=== PATIENT | female | born 1945 | race Caucasian/White ===

== ENCOUNTER 2018-11-23 15:56 | Inpatient (IN) | payer MEDICARE, MEDICAID ==
[~2018-11-23] VITALS: Ht 160 cm; Wt 56.8 kg
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
[2018-11-24] MEDS ORDERED: mag hydrox/Alum hydrox/simeth 30ml oral suspension PO PRN ×2 (01:40→01:45)
[2018-11-24] MEDS ORDERED: tuberculin, purif. prot. deriv. 5 units/0.1ml ID ONE (01:40)
[2018-11-24] MEDS ORDERED: magnesium hydroxide 30ml (MOM) UD suspension PO PRN ×2 (01:40→01:45)
[2018-11-24] MEDS ORDERED: acetaminophen 325mg tablet PO PRN ×3 (01:40)
[2018-11-24] MEDS: hydrOXYzine 25 MG tablet PO PRN (01:59)
[2018-11-24] MEDS: acetaminophen 325mg tablet PO PRN ×3 (01:59→22:15)
[2018-11-24] MEDS ORDERED: Permethrin Cream 60gm TP ONE (03:30)
[2018-11-24] MEDS ORDERED: Permethrin 1% 59ml topical rinse TP ONE (03:30)
--- NOTE | 2018-11-24 06:39 | NUR ---
Called infection control, pt placed on contact precautions and will be moved into a private room when available. Paged hospitalist to assess rash and advised of infection control's recommendation of administering Ivermectin if confirmed scabies. Belongings to be bagged and placed in outdoor ER lockers.
[2018-11-24] MEDS ORDERED: ALB0.5UD IH (06:56)
[2018-11-24] MEDS ORDERED: FLUT16SP2 BOTHNARES (06:56)
[2018-11-24] MEDS ORDERED: LAMO25TA94 PO (06:56)
[2018-11-24] MEDS ORDERED: OMEP20TA5 PO (06:56)
[2018-11-24] MEDS ORDERED: LEVO75TA PO (06:56)
[2018-11-24] MEDS ORDERED: FLUO20CA39 PO (06:56)
[2018-11-24] MEDS ORDERED: SIMV20TA5 PO (06:56)
[2018-11-24 08:00] VITALS: BP 129/93
[2018-11-24] MEDS ORDERED: lamoTRIgine 25mg tablet PO SCH (08:00)
[2018-11-24] MEDS ORDERED: pneumococcal 23-VAL P-sac vacc 25 mcg/0.5ml vial IMVAC ONE (10:00)
--- NOTE | 2018-11-24 11:15 | NUR ---
Patient showered. Permethrin cream applied. Patient moved to room 327 and will be only resident of that room. Flu and pneumonia vaccine not available from pharmacy yet.
[2018-11-24] MEDS ORDERED: albuterol 2.5 MG/3 ML nebule NEB PRN (12:30)
[2018-11-24] MEDS ORDERED: fluticasone nasal spray 16GM bottle NS PRN (12:30)
[2018-11-24 12:47] LABS: CLARITY,URINE CLEAR (Clear); COLOR,URINE STRAW (Yellow); GLUCOSE, URINE NEGATIVE (Neg); KETONES,URINE NEGATIVE (Neg); LEUKOCYTE ESTERASE ,URINE NEGATIVE (Neg); NITRITES, URINE NEGATIVE (Neg); OCCULT BLOOD,URINE NEGATIVE (Neg); PROTEIN,URINE NEGATIVE (Neg); UROBILINOGEN,URINE 0.2 E.U/dL (0.2-1.0)
[2018-11-24 12:52] LABS: UA COLLECTION TYPE CLN CATCH MIDSTREAM
--- NOTE | 2018-11-24 13:33 | NUR ---
Chief Complaint Suicidal Legal hold:5150 Client on involuntary status for DTS Report received from nurse Huertas with use of SBAR. Why are they here: Depression with suicidal ideation with plan and means Diagnosis/presenting symptoms: MDD, suicidal ideation HX bipolar and PTSD Assessment What has happened this shift: Patient was found to have scabies. She showered and applied permethrin cream. Hospitalist Alfredo was contacted. A UA, chest x-ray and additional labs were ordered. UA completed . No culture indicated. Patient is isolated in her room until the permethrin cream takes effect in the next 24 hours. S/I, H/I:[yes] A/VH: [no] Sleep:[adequate] ADL's:[independent, periods of dizziness] Group attendance:[no, isolated] Were meds taken:[yes] Any med S/E[no] Mental Status Exam Appearance:[clean and neat with circular rashes on skin, appears older than stated age] Eye contact:[good] Behavior:[pleasant and cooperative] Speech:[coherent, clear even rate and rhythm] Mood:[depressed, suicidal] Affect:[restricted] Thought process:[delusional, scattered Thought Content:[believes she is autistic, suicidal, somatic preoccupation] Cognition:[impaired] Insight:[impaired] Judgment:[poor] Interventions PRN's used:[none] Therapeutic interventions:[medication education, one to one assessment, Q15 minute checks for safety, active listening] Restraints/seclusion/emergency medication:[none] Justification of Continued Inpatient Treatment:[Patient is suicidal and needs medication stabilization]
--- NOTE | 2018-11-24 14:50 | NUR ---
Malnutrition consult. Reported weight loss between 14-23 lbs. No previous documented weight history. Current weight is 108% of [place] Body Weight. Normal muscle strength. Good appetite, eating 100% of meals. No malnutrition at this time. Addendum: 11/24/18 at [address] Amended: Links added.
[2018-11-24 16:23] LABS: BASOPHILS % (AUTO) 0.6 % (0-1); EOSINOPHILS % (AUTO) 0.5 % (0-6); HEMATOCRIT 40.3 % (35.0-45.0); HEMOGLOBIN 13.5 g/dl (12.0-16.0); LYMPHOCYTES # (AUTO) 1.7 X10'3 (1.1-4.8); LYMPHOCYTES % (AUTO) 44.9 % (21-51); MEAN CORPUSCULAR HEMOGLOBIN 30.9 PG (27.0-31.0); MEAN CORPUSCULAR HGB CONC 33.4 % (33.0-36.5); MEAN CORPUSCULAR VOLUME 92.4 FL (78-98); MEAN PLATELET VOLUME 6.6 FL (7.4-10.4); MONOCYTES # (AUTO) 0.3 X10'3 (0-0.9); MONOCYTES % (AUTO) 8.8 % (2-12); NEUTROPHILS # (AUTO) 1.7 X10'3 (1.8-7.7); NEUTROPHILS % (AUTO) 45.2 % (42-75); PLATELET COUNT 299 X10'3 (140-440); RED BLOOD COUNT 4.36 X10'6 (4.20-5.60); RED CELL DISTRIBUTION WIDTH 13.7 % (11.5-14.5); WHITE BLOOD COUNT 3.7 X10'3 (4.5-11.0)
[2018-11-24 16:38] LABS: HIV ANTIBODY 1&2 RAPID NON-REACTIVE (Neg)
[2018-11-24 16:39] LABS: ALANINE AMINOTRANSFERASE 20 U/L (12-78); ALBUMIN 3.4 G/DL (3.4-5.0); ALBUMIN/GLOBULIN RATIO 0.9 (1.1-1.5); ALKALINE PHOSPHATASE 79 IU/L (46-116); ANION GAP 11 (8-16); ASPARTATE AMINO TRANSFERASE 18 U/L (10-37); BILIRUBIN,TOTAL 0.4 MG/DL (0.1-1.0); BLOOD UREA NITROGEN 14 MG/DL (7-18); CALCIUM 8.9 MG/DL (8.5-10.1); CHLORIDE 105 MMOL/L (99-107); CHOL/HDL RATIO 4.1 (0.00-4.99); CHOLESTEROL 211 MG/DL (0-200); GLUCOSE 108 MG/DL (70-104); HDL CHOLESTEROL 52 MG/DL (35-60); LDL CHOLESTEROL 148 MG/DL (50-100); POTASSIUM 3.8 MMOL/L (3.5-5.1); SODIUM 142 MMOL/L (135-145); TOTAL CARBON DIOXIDE 26.1 MMOL/L (24-32); TOTAL PROTEIN 7.1 G/DL (6.4-8.2); TRIGLYCERIDES 100 MG/DL (20-135); eGFR 55 ML/MIN
[2018-11-24 16:45] LABS: INR 1.1 INR; PARTIAL THROMBOPLASTIN TIME 27 SECONDS (22-32); PROTHROMBIN TIME 10.9 SECONDS (9.0-12.0)
[2018-11-24] MEDS: Ivermectin 3mg tablet PO SCH (17:27)
[2018-11-24 20:00] VITALS: BP 153/92
[2018-11-24] MEDS: pantoprazole 40mg Tablet.DR PO SCH (20:22)
[2018-11-24] MEDS: atorvastatin 10mg tablet PO SCH (20:22)
--- NOTE | 2018-11-25 03:38 | NUR ---
Nursing Progress Note Chief Complaint Suicidal Legal hold:5150 Client on involuntary status for DTS Report received from nurse Watts with use of SBAR. Why are they here: Depression with suicidal ideation with plan and means Diagnosis/presenting symptoms: MDD, suicidal ideation HX bipolar and PTSD Assessment: Pt is isolated to her room due to scabies. She is looking forward to being able to participate in unit activities. She states she is very depressed but is very glad to be here. She says "I need help, I need my medications adjusted till they work for me." Pt again talked about having autism and health care workers who have not believed her. Requested Tylenol for headache. Pt was pleasant and cooperative. What has happened this shift: S/I, H/I: yes A/VH: no Sleep:sleeping at this time. ADL's: independent, no c/o dizziness Group attendance: no, isolated Were meds taken: yes Any med S/E no Mental Status Exam Appearance: clean and neat with circular rashes on skin, Eye contact: good Behavior: pleasant and cooperative Speech: coherent, clear even rate and rhythm Mood: depressed, suicidal Affect: Thought process: delusional, scattered Thought Content: believes she is autistic, suicidal, somatic preoccupation Cognition: impaired Insight: impaired Judgment: poor Interventions PRN's used: tylenol Therapeutic interventions: medication education, one to one assessment, Q15 minute checks for safety, active listening Restraints/seclusion/emergency medication: none Justification of Continued Inpatient Treatment: Patient is suicidal and needs medication stabilization
[2018-11-25] MEDS ORDERED: lurasidone 20mg tablet PO SCH (07:30)
[2018-11-25 07:36] VITALS: BP 135/96
[2018-11-25] MEDS ORDERED: lamoTRIgine 25mg tablet PO SCH (08:00)
[2018-11-25] MEDS: pantoprazole 40mg Tablet.DR PO SCH ×2 (09:04→20:31)
[2018-11-25] MEDS: levoTHYROXINE 75mcg tablet PO SCH (09:04)
[2018-11-25] MEDS ORDERED: tuberculin, purif. prot. deriv. 5 units/0.1ml ID ONE (10:00)
--- NOTE | 2018-11-25 17:56 | NUR ---
Nursing Progress Note Legal hold:5150 Client on involuntary status for DTS Report received from KITA Huertas with use of SBAR. Why are they here: Depression with suicidal ideation with plan and means Diagnosis/presenting symptoms: MDD, suicidal ideation HX bipolar and PTSD Assessment: Pt is on contact isolation to her room due to tx for scabies. Describes the feelings of pins and needles under her skin as being gone and her skin does not itch. Met with Jose Manuel Yañez/ [facility] and discussed her meds and symptoms. He will most likely stop the contact isolation tomorrow morning due to her posotive response to meds for scabies. She is looking forward to being able to participate in unit activities. She is highly engagable and enjoys talking about her life. She states she is glad to be here and wishes she got help years ago. Pt talked about having autism and writing a book about her experiences. Spoke at length about her autistic son and her concern for him. PPD placed. Pt was pleasant and cooperative. Accepted her room isolation well and adhered to it. Some grandiose thinking. What has happened this shift: S/I, H/I: Denies A/VH: no Sleep: Napped at times this shift ADL's: independent Group attendance: no, isolated Were meds taken: yes Any med S/E no Mental Status Exam Appearance: clean and neat with circular rashes on skin, Eye contact: good Behavior: pleasant and cooperative Speech: coherent, clear even rate and rhythm Mood: depressed, suicidal Affect: Thought process: delusional, scattered Thought Content: believes she is autistic Cognition: impaired Insight: impaired Judgment: poor Interventions PRN's used: tylenol Therapeutic interventions: medication education, one to one assessment, Q15 minute checks for safety, active listening Restraints/seclusion/emergency medication: none Justification of Continued Inpatient Treatment: Patient is suicidal and needs medication stabilization
[2018-11-25] MEDS: lamoTRIgine 100mg tablet PO SCH (18:00)
[2018-11-25 20:05] VITALS: BP 151/94
[2018-11-25] MEDS: prazosin 1mg capsule PO SCH (20:31)
[2018-11-25] MEDS: atorvastatin 10mg tablet PO SCH (20:31)
--- NOTE | 2018-11-25 23:31 | NUR ---
Nursing Progress Note Legal hold:5150 Client on involuntary status for DTS Report received from KITA Huerta Why are they here: Depression with suicidal ideation with plan and means. Diagnosis/presenting symptoms: MDD, suicidal ideation HX bipolar and PTSD Assessment: What has happened this shift: Patient is in her room at change of shift as she remains on contact isolation for scabies. Patient is easily engaged in conversation and is cooperative with 1:1 assessment at her bedside. She is looking forward to getting off of isolation so she can attend unit activities and socialize with others. She expresses that she no longer feels suicidal and that she feels she is finally getting the helps she needs. She is hopeful with her new medication of Minipress that she will stop having nightmares. She spends the rest of her evening reading magazines while in bed, and then turning her lights out and goes to bed. S/I, H/I: Denies A/VH: No Sleep: Sleeping ADL's: Independent Group attendance: None Were meds taken: Yes Any med S/E: No Mental Status Exam Appearance: Clean well groomed with circular rashes on skin related to scabies. Eye contact: Good Behavior: Cooperative and Pleasant Speech: Clear, normal rate and rhythm Mood: Depressed Affect: Bright Thought process: Grandiose Thought Content: Believes she has autism Cognition: Impaired Insight: Poor Judgment: Poor Interventions PRN's used: None Therapeutic interventions: 1:1 assessment at patients bedside. Educated patient on medications. educated patient on isolation status. Provided therapeutic environment and active listening. Q15 minute checks for safety. Restraints/seclusion/emergency medication: None Justification of Continued Inpatient Treatment: Patient is depressed and needs medication stabilization.
[2018-11-26] MEDS: acetaminophen 325mg tablet PO PRN ×2 (02:07→15:50)
[2018-11-26] MEDS: hydrOXYzine 25 MG tablet PO PRN (02:07)
--- NOTE | 2018-11-26 07:51 | NUR ---
Nursing note: Infection control Jose Manuel Yañez arrives and assesses pts skin issues. Pts scabies are starting to improve. Pt has been taken off of isolation. Pt may be retreated a week later if the scabies worsens or returns.
[2018-11-26 08:00] VITALS: BP 117/74
[2018-11-26] MEDS ORDERED: FLUoxetine 20mg capsule PO SCH (08:00)
[2018-11-26] MEDS: levoTHYROXINE 75mcg tablet PO SCH (08:11)
[2018-11-26] MEDS: pantoprazole 40mg Tablet.DR PO SCH ×2 (08:11→20:41)
[2018-11-26 08:17] LABS: HBSAG SCREEN Negative (Negative); HEP A AB, IGM Negative (Negative); HEP B CORE AB, IGM Negative (Negative); HEPATITIS C ANTIBODY <0.1 s/co ratio (0.0-0.9)
--- NOTE | 2018-11-26 15:10 | NUR ---
Nursing Progress Note Legal hold: 5150 Client on involuntary status for DTS Report received from KITA Colon Why are they here: Depression with suicidal ideation with plan and means. Diagnosis/presenting symptoms: MDD, suicidal ideation HX bipolar and PTSD Assessment: What has happened this shift: Patient has been on contact isolation for scabies, Jose Manuel Otilio, Infection Control took her off isolation contact precautions. Patient is hyperverbal. States she has fractures of her cervical spine, lumbar spine and pelvis. Patient attends groups, but then has to leave as sitting up gives her headaches. S/I, H/I: A/VH: States that she has had visual lozano. for last 3 months, but none currently. Sleep: Awake during daytime. ADL's: Independent Group attendance: Yes. Were meds taken: Yes Any med S/E: No Mental Status Exam Appearance: Clean well groomed with circular rashes on skin related to scabies. Eye contact: Good Behavior: Cooperative and Pleasant Speech: Clear, normal rate and rhythm Mood: Depressed Affect: Bright Thought process: Flight of ideas. Thought Content: Discharge plans, loneliness. Cognition: Impaired Insight: Poor Judgment: Poor Interventions PRN's used: None Therapeutic interventions: 1:1 assessment at patients bedside. Educated patient on medications. educated patient on isolation status. Provided therapeutic and active listening. Q15 minute checks for safety. Restraints/seclusion/emergency medication: None Justification of Continued Inpatient Treatment: Patient is depressed and needs medication stabilization.
[2018-11-26 19:00] VITALS: BP 143/75
[2018-11-26] MEDS: lamoTRIgine 100mg tablet PO SCH (19:14)
[2018-11-26] MEDS: atorvastatin 10mg tablet PO SCH (20:42)
[2018-11-26] MEDS: prazosin 1mg capsule PO SCH (20:42)
--- NOTE | 2018-11-27 00:36 | NUR ---
Nursing Progress Note Legal hold: 5150 Client on involuntary status for DTS Report received from KITA Torres Why are they here: Depression with suicidal ideation with plan and means. Diagnosis/presenting symptoms: MDD, suicidal ideation HX bipolar and PTSD Assessment: What has happened this shift: Patient walking the unit interacting with others at the change of shift. Met with patient in her room for a 1:1 assessment. Patient is really talkative, and jumps from topic to topic elaborating on on her stories. She is very friendly and enjoys the conversation. This evening she is preoccupied with the idea of finding a new home in [place] as she no longer wants to go to her house where she lives. Patient presents with grandiose thinking and flight of ideas. She enjoys the interaction with others, and is happy to be off of isolation. She is educated on her evening medications, and then spends the rest of her evening in bed reading till she falls asleep. S/I, H/I: Denies A/VH: Denies Sleep: Sleeping currently ADL's: Independent Group attendance: None Were meds taken: Yes Any med S/E: No Mental Status Exam Appearance: Clean well groomed with circular rashes on skin related to scabies. Eye contact: Good Behavior: Cooperative and Pleasant Speech: Clear, normal rate and rhythm Mood: Patient states "better today, some depression." Affect: Bright Thought process: Flight of ideas, Grandiose. Thought Content: Discharge plans. Cognition: Impaired Insight: Poor Judgment: Poor Interventions PRN's used: None Therapeutic interventions: 1:1 assessment at patients bedside. Educated patient on medications. Provided therapeutic and active listening to maintain rapport. Q15 minute checks for safety. Restraints/seclusion/emergency medication: None Justification of Continued Inpatient Treatment: Patient is depressed and needs medication stabilization.
[2018-11-27] MEDS: levoTHYROXINE 75mcg tablet PO SCH (07:22)
[2018-11-27] MEDS: acetaminophen 325mg tablet PO PRN (07:22)
[2018-11-27] MEDS: pantoprazole 40mg Tablet.DR PO SCH ×2 (07:23→20:09)
[2018-11-27] MEDS: FLUoxetine 20mg capsule PO SCH (07:23)
[2018-11-27 07:55] VITALS: BP 126/77
--- NOTE | 2018-11-27 15:55 | NUR ---
Initial: Pt admitted to [facility] for bipolar disorder with depression. Pt currently on a mechanical soft diet with documented PO intake 75-100% meeting nutrient needs. LBM 11/27. No edema or wounds. No nutrition diagnosis at this time. Will continue to follow. Recommendations: 1) Continue with [facility] soft diet 2) Weekly wt Addendum: 11/27/18 at [address] Amended: Links added.
--- NOTE | 2018-11-27 17:43 | NUR ---
Nursing Progress Note: Chief Complaint: 5150 for DTS Legal hold: 5250 Client on involuntary status DTS. Report received from KITA Colon with use of SBAR. Why are they here:. Diagnosis/presenting symptoms: Bipolar, Depressed, PTSD. Pt here on 5250 for DTS. Assessment What has happened this shift: Pt was up in the group room at change of shift. She reported pain in her lower back, PRN Tylenol given. Pt was pleasant and cooperative with assessment. She was talkative. She talked about her home environment and having difficulty providing food for herself and pets. She expressed concern about a patient that she feels is watching her. She stated, "Don't know if he thinks he is in love with me, but he is going about it the wrong way." Pt expressed that she was anxious and had a PTSD flashback when another pt was agitated on the unit. Offered active listening and redirected pt that she was safe. S/I, H/I: denies A/VH: she stated, "not in years" Sleep: Napped ADL's: independent Group attendance: yes Were meds taken: yes Any med S/E: no Mental Status Exam Appearance: Pt appears thin, missing teeth, and wearing clothing over scrub top. Eye contact: Direct Behavior: Appropriate Speech: Talkative Mood: Anxious at times Affect: Congruent with mood Thought process: Linear Thought Content: Concerned about another pt she feels is watching her Cognition: A&Ox4 Insight: Poor Judgment: Poor Interventions PRN's used: Tylenol Therapeutic interventions: 1:1 therapeutic assessment, active listening, Q 15 min safety checks, medication education Restraints/seclusion/emergency medication: None Justification of Continued Inpatient Treatment: Pt require medication adjustments, support and therapeutic interventions to provide stabilization and prevent decompensation and decrease the risk for the patient and readmittance.
[2018-11-27] MEDS: lamoTRIgine 100mg tablet PO SCH (18:03)
[2018-11-27 19:30] VITALS: BP 123/69
[2018-11-27] MEDS: prazosin 1mg capsule PO SCH (20:09)
[2018-11-27] MEDS: atorvastatin 10mg tablet PO SCH (20:09)
--- NOTE | 2018-11-27 23:32 | NUR ---
Nursing Progress Note Legal hold: 5150 Client on involuntary status for DTS Report received from KITA Wilkinson Why are they here: Depression with suicidal ideation Diagnosis/presenting symptoms: MDD, suicidal ideation HX bipolar and PTSD Assessment: What has happened this shift: Patient was in her room at change of shift. 1:1 assessment completed at bedside. Pt is in a pleasant mood, denies s/i. Pt reports she is feeling tired states "I was up too much this morning, this day was too busy for me." Pt reports sleeping very well last night and reports "pleasant dreams" She spent evening talking w/another patient and then watched tv w/others in the group room. Pt reports her appetite is good, states she's getting good food here. Pt is concerned of another patient talking to her, but I did not witness him making any attempts to speak to her this shift. S/I, H/I: denies A/VH: denies . Sleep: reports sleep is good ADL's: Independent Group attendance: Yes. Were meds taken: Yes Any med S/E: No Mental Status Exam Appearance: adequately groomed and appropriately dressed Eye contact: Good Behavior: Cooperative and Pleasant Speech: wnl Mood: pleasant, continues to have some depression Affect: Bright Thought process: tangential Thought Content: talking about "socializing" with peers. Cognition: Impaired Insight: Poor Judgment: Poor Interventions PRN's used: None Therapeutic interventions: 1:1 assessment at patients bedside. Provided therapeutic and active listening. Q15 minute checks for safety. Restraints/seclusion/emergency medication: None Justification of Continued Inpatient Treatment: Patient is depressed and needs medication stabilization.
[2018-11-28] MEDS: levoTHYROXINE 75mcg tablet PO SCH (07:59)
[2018-11-28] MEDS: pantoprazole 40mg Tablet.DR PO SCH ×2 (07:59→20:25)
[2018-11-28] MEDS: FLUoxetine 20mg capsule PO SCH (07:59)
[2018-11-28] MEDS: LIDOcaine 5% patch TP SCH (08:00)
[2018-11-28 08:32] VITALS: BP 120/68
[2018-11-28] MEDS: acetaminophen 325mg tablet PO PRN (12:51)
--- NOTE | 2018-11-28 17:25 | NUR ---
Nursing Progress Note: Chief Complaint: 5150 for DTS Legal hold: 5250 Client on involuntary status DTS. Report received from KITA Esparza with use of SBAR. Why are they here:. Diagnosis/presenting symptoms: Bipolar, Depressed, PTSD. Pt here on 5250 for DTS. Assessment What has happened this shift: Pt was sleeping at change of shift. She was compliant with mediation administration. Pleasant and cooperative with assessment. Pt talkative with flight of ideas. She denied depression, but indicated she was a little anxious. She stated, "that brian with bald head freaks me out." While discussing how she feels she stated, "I feel like a human again instead of a doormat." Lidocaine and tylenol relieved pt's pain in her back. Pt participated in groups. S/I, H/I: denies A/VH: denies Sleep: Napped ADL's: independent Group attendance: yes Were meds taken: yes Any med S/E: no Mental Status Exam Appearance: Dressed neatly in white pants with a lavender turtle neck Eye contact: Direct Behavior: Talkative Speech: Articulate Mood: Anxious Affect: Pleasant Thought process: Tangential Thought Content: Flight of ideas Cognition: A&Ox4 Insight: Poor Judgment: Poor Interventions PRN's used: Tylenol Therapeutic interventions: 1:1 therapeutic assessment, active listening, Q 15 min safety checks, medication education Restraints/seclusion/emergency medication: None Justification of Continued Inpatient Treatment: Pt require medication adjustments, support and therapeutic interventions to provide stabilization and prevent decompensation and decrease the risk for the patient and readmittance.
[2018-11-28] MEDS: lamoTRIgine 100mg tablet PO SCH (18:04)
[2018-11-28 19:00] VITALS: BP 122/65
[2018-11-28] MEDS: atorvastatin 10mg tablet PO SCH (20:25)
[2018-11-28] MEDS: prazosin 1mg capsule PO SCH (20:25)
--- NOTE | 2018-11-29 02:40 | NUR ---
RN PROGRESS NOTE: Legal hold: 5250 Client on involuntary status for DTS Report received from KITA Wilkinson Why are they here: The patient was brought in by a friend that was worried that she might harm herself. The patient states that her medications got screwed up and she couldn't think right. Diagnosis/presenting symptoms: MDD, PTSD, SI, anxiety Assessment: What has happened this shift: The patient was in her room at change of shift. 1:1 assessment completed at bedside. The patient is calm and cooperative. She reports that she slept well last night and had good, happy dreams. "My meds are working, but I feel deidre wired today." The patient was hyperverbal and needed re-direction a couple times, but was able to have good conversation. She stayed in her room reading, then went to sleep after HS med pass. S/I, H/I: Denies A/VH: Denies . Sleep: "Good sleep with happy dreams." ADL's: Independent Group attendance: No groups tonight. Were meds taken: Yes Any med S/E: None noted Mental Status Exam Appearance: adequately groomed and appropriately dressed Eye contact: Good Behavior: Pleasand and cooperative, laying in bed reading. Speech: Hyperverbal Mood: "Great." Affect: Bright Thought process: Tangential, flight of ideas. Thought Content: Focused on getting better and going home. Cognition: A/O Insight: Poor Judgment: Poor Interventions PRN's used: None Therapeutic interventions: 1:1 assessment. Medication administration, provided safe environment, Provided therapeutic and active listening. Q15 minute checks for safety. Restraints/seclusion/emergency medication: None Justification of Continued Inpatient Treatment: Patient is depressed and needs medication stabilization.
[2018-11-29 07:00] VITALS: BP 131/88
[2018-11-29] MEDS: pantoprazole 40mg Tablet.DR PO SCH ×2 (07:40→20:49)
[2018-11-29] MEDS: levoTHYROXINE 75mcg tablet PO SCH (07:40)
[2018-11-29] MEDS: FLUoxetine 20mg capsule PO SCH (07:40)
[2018-11-29] MEDS: LIDOcaine 5% patch TP SCH (07:41)
[2018-11-29] MEDS: ibuprofen 200mg tablet PO PRN (11:07)
--- NOTE | 2018-11-29 16:10 | NUR ---
KITA PROGRESS NOTE: Legal hold: 5250 Client on involuntary status for DTS Report received from KITA Cantu Why are they here: The patient was brought in by a friend that was worried that she might harm herself. The patient states that her medications got screwed up and she couldn't think right. Diagnosis/presenting symptoms: MDD, PTSD, SI, anxiety Assessment: What has happened this shift: Patient laying in bed complaining of back pain, ibuprofen given with good relief along with lidocaine patch. Patient openly discusses details of her life, including childhood trauma. S/I, H/I: Denies A/VH: Denies . Sleep: Good. ADL's: Independent Group attendance: Attempted to attend movie group, but patient could not hear t.v. and went and read. Were meds taken: Yes Any med S/E: None noted Mental Status Exam Appearance: Clean and neat elderly female in green scrubs. Eye contact: Good Behavior: Calm and cooperative. Speech: Hyperverbal Mood: Patient states she is a good mood. No mood lability noted. Affect: Bright Thought process: Tangential. Thought Content: Focused on getting better and going home to her animals. Cognition: A/O Insight: Fair. Judgment: Poor Interventions PRN's used: None Therapeutic interventions: 1:1 to assess severity of symptoms. Provided safe environment, Provided therapeutic and active listening. Q15 minute checks for safety. Restraints/seclusion/emergency medication: None Justification of Continued Inpatient Treatment: Patient is in process of stabilization process. If relased before stabilized, patient would be at a high risk for readmission.
[2018-11-29 19:55] VITALS: BP 141/81
[2018-11-29] MEDS: atorvastatin 10mg tablet PO SCH (20:49)
[2018-11-29] MEDS: prazosin 1mg capsule PO SCH (20:50)
[2018-11-29] MEDS: lamoTRIgine 100mg tablet PO SCH (20:51)
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
[2018-11-30 07:00] VITALS: BP 126/78
[2018-11-30] MEDS: FLUoxetine 20mg capsule PO SCH (07:36)
[2018-11-30] MEDS: pantoprazole 40mg Tablet.DR PO SCH ×2 (07:36→20:19)
[2018-11-30] MEDS: levoTHYROXINE 75mcg tablet PO SCH (07:36)
[2018-11-30] MEDS: ibuprofen tablet 400 MG TABLET PO PRN (07:36)
[2018-11-30] MEDS: acetaminophen 325mg tablet PO PRN (07:37)
[2018-11-30] MEDS: LIDOcaine 5% patch TP SCH (07:38)
[2018-11-30] MEDS: SUMAtriptan 25 MG tablet PO PRN ×2 (10:34→12:43)
[2018-11-30] MEDS: ibuprofen 200mg tablet PO PRN (12:43)
--- NOTE | 2018-11-30 14:52 | NUR ---
RN PROGRESS NOTE: Legal hold: 5250 Client on involuntary status for DTS Report received from KITA Cantu Why are they here: The patient was brought in by a friend that was worried that she might harm herself. The patient states that her medications got screwed up and she couldn't think right. Diagnosis/presenting symptoms: MDD, PTSD, SI, anxiety Assessment: What has happened this shift: Patient states that she is having a migraine today. Ibuprofen, imitrex, and Tylenol given for pain. Patient states no relief, 2nd dose of imitrex given with ibuprofen and later patient states that she only has a mild headache now. When patient came in she walked without assistance, now she is using a walker. She has been requesting a soft cervical collar, from Dr. Jim RN, and then Camille. It appears that patient is somatizing her mental health symptoms. S/I, H/I: Denies A/VH: Denies. Sleep: Good. ADL's: Independent Group attendance: Patient refusing to get out of bed for lunch or go to group, states her neck hurts too much to sit up. Were meds taken: Yes Any med S/E: None noted Mental Status Exam Appearance: Clean and neat elderly female in green scrubs. Eye contact: Good Behavior: Calm and cooperative. Speech: Clear. Mood: In bed today due to pain. Affect: Blunted. Thought process: Pain. Thought Content: Pain control. Cognition: A/O Insight: Fair. Judgment: Poor Interventions PRN's used: None Therapeutic interventions: 1:1 to assess severity of symptoms. Provided safe environment, Provided therapeutic and active listening. Q15 minute checks for safety. Restraints/seclusion/emergency medication: None Justification of Continued Inpatient Treatment: Patient is in process of stabilization. If released before stabilized, patient would be at a high risk for readmission.
[2018-11-30] MEDS: atorvastatin 10mg tablet PO SCH (20:18)
[2018-11-30] MEDS: prazosin 1mg capsule PO SCH (20:18)
[2018-11-30] MEDS: lamoTRIgine 100mg tablet PO SCH (20:19)
[2018-11-30] MEDS: gabapentin 100mg capsule PO SCH (20:19)
--- NOTE | 2018-12-01 02:28 | NUR ---
KITA PROGRESS NOTE: Legal hold: 5250 Client on involuntary status for DTS Report received from KITA Torres Why are they here: The patient was brought in by a friend that was worried that she might harm herself. The patient states that her medications got screwed up and she couldn't think right. Diagnosis/presenting symptoms: MDD, PTSD, SI, anxiety Assessment: What has happened this shift: The patient was met in her room for 1:1 assessment. She was sitting reading a book. She reports that she had a headache earlier, but it's gone now. "I have Imitrex ordered now, if I need it. The Doctor also started me on Gabapentin for my nerve pain." The patient states that she believes she'll be out of here by the end of the month. "I have a decent relationship with my landlord, but I'm thinking of moving to [place] to be closer to services." At 0300 the patient c/o headache and Motrin 400mg was administered. The patient went back to sleep. S/I, H/I: Denies A/VH: Denies . Sleep: "Good." ADL's: Independent Group attendance: No groups tonight. Were meds taken: Yes Any med S/E: None noted Mental Status Exam Appearance: adequately groomed straight west hair and appropriately dressed in green scrubs Eye contact: Good Behavior: Pleasant and cooperative, laying in bed reading. Speech: Clear, normal rate/volume. Mood: "Good, now that GALVEZ is gone." Affect: Bright Thought process: Tangential, flight of ideas. Thought Content: Preoccupied with thoughts of her headache. Cognition: A/O Insight: Fair Judgment: Intact Interventions PRN's used: Motrin for headache Therapeutic interventions: 1:1 assessment. Medication administration, provided safe environment, Provided therapeutic and active listening. Q15 minute checks for safety. Restraints/seclusion/emergency medication: None Justification of Continued Inpatient Treatment: Patient is depressed and needs medication stabilization.
[2018-12-01] MEDS: ibuprofen tablet 400 MG TABLET PO PRN ×2 (03:00→13:12)
[2018-12-01 07:56] VITALS: BP 115/74
[2018-12-01] MEDS: gabapentin 100mg capsule PO SCH ×3 (07:56→20:33)
[2018-12-01] MEDS: pantoprazole 40mg Tablet.DR PO SCH ×2 (07:56→20:33)
[2018-12-01] MEDS: levoTHYROXINE 75mcg tablet PO SCH (07:56)
[2018-12-01] MEDS: FLUoxetine 20mg capsule PO SCH (07:57)
[2018-12-01] MEDS: LIDOcaine 5% patch TP SCH (07:57)
--- NOTE | 2018-12-01 14:14 | NUR ---
Reassessment: Documented PO intake remains 100% meeting nutrient needs. [facility] 11/30. Will continue to follow. Recommendations: 1) Continue with [facility] soft diet 2) Weekly wt Addendum: 12/01/18 at [address] Amended: Links added.
[2018-12-01] MEDS: Ivermectin 3mg tablet PO SCH (16:25)
--- NOTE | 2018-12-01 16:52 | NUR ---
KITA Progress Note: Legal hold: 5250 Client on involuntary status for DTS Report received from KITA Cantu Why are they here: The patient was brought in by a friend that was worried that she might harm herself. The patient states that her medications got screwed up and she couldn't think right. Diagnosis/presenting symptoms: MDD, PTSD, SI, anxiety Assessment: What has happened this shift: Pt up on and off throughout the shift. She refused a shower today states, I just took one, Im fine. Pt has wore the same robe for the past week. Pt talked about having been or Ritalin in the past and states she will talk to her doctor about how this medications helped me think clearer. Napped on and off throughout the day. Court hearing today. S/I, H/I: Denies A/VH: Denies. Sleep: Good. ADL's: Independent Group attendance: Y Were meds taken: Y Any med S/E: None noted or observed. Mental Status Exam Appearance: Clean and neat elderly female in green scrubs. Eye contact: Good Behavior: Calm and cooperative. Speech: Clear. Mood: In bed today due to pain. Affect: Blunted. Thought process: Pain. Thought Content: Pain control. Cognition: A/Ox4 Insight: Fair. Judgment: Poor Interventions PRN's used: Motrin Therapeutic interventions: 1:1 to assess severity of symptoms. Provided safe environment, Provided therapeutic and active listening. Q15 minute checks for safety. Restraints/seclusion/emergency medication: None Justification of Continued Inpatient Treatment: Patient is in process of stabilization. If released before stabilized, patient would be at a high risk for readmission.
[2018-12-01] MEDS: lamoTRIgine 100mg tablet PO SCH (17:36)
[2018-12-01 20:15] VITALS: BP 141/74
[2018-12-01] MEDS: atorvastatin 10mg tablet PO SCH (20:32)
[2018-12-01] MEDS: prazosin 1mg capsule PO SCH (20:33)
[2018-12-01] MEDS: ibuprofen 200mg tablet PO PRN (20:34)
[2018-12-01] MEDS: hydrOXYzine 25 MG tablet PO PRN (20:49)
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
[2018-12-02 08:00] VITALS: BP 126/76
[2018-12-02] MEDS: levoTHYROXINE 75mcg tablet PO SCH (08:07)
[2018-12-02] MEDS: gabapentin 100mg capsule PO SCH ×3 (08:07→20:39)
[2018-12-02] MEDS: FLUoxetine 20mg capsule PO SCH (08:08)
[2018-12-02] MEDS: pantoprazole 40mg Tablet.DR PO SCH ×2 (08:08→20:39)
[2018-12-02] MEDS: LIDOcaine 5% patch TP SCH (08:09)
--- NOTE | 2018-12-02 13:00 | NUR ---
KITA Progress Note: Legal hold: 5250 Client on involuntary status for DTS Report received from KITA Sanchez Why are they here: The patient was brought in by a friend that was worried she might harm herself. The patient states that her medications got screwed up and she couldn't think right. Diagnosis/presenting symptoms: MDD, PTSD, SI, anxiety Assessment: What has happened this shift: Pt c/o she is feeling groggy. Educated to PM medications used last night. Pt would like to take only one tablet of the Atarax tonight. Pt slept most of the morning after breakfast. She did not attend AM group. She remains is the gown she was wearing yesterday. S/I, H/I: Denies A/VH: Denies. Sleep: Good. ADL's: Independent Group attendance: Y Were meds taken: Y Any med S/E: None noted or observed. Mental Status Exam Appearance: Clean and neat elderly wearing a flowering gown Eye contact: Good Behavior: Calm and cooperative. Speech: Clear. Mood: Quiet c/o of fatigue Affect: Blunted. Thought process: Pain. Thought Content: Pain control. Cognition: A/Ox4 Insight: Fair. Judgment: Poor Interventions PRN's used: N/A Therapeutic interventions: 1:1 to assessment providing active listening and establishing rapport; encouraged ADLs; provided safe environment, monitored medications efficacy and for AEs; Q15 minute checks for safety. Restraints/seclusion/emergency medication: N/A Justification of Continued Inpatient Treatment: Patient is in process medications stabilization without further stabilization at risk for rehospitalization.
[2018-12-02] MEDS: ibuprofen 200mg tablet PO PRN ×2 (14:35→20:39)
[2018-12-02] MEDS: acetaminophen 325mg tablet PO PRN (14:35)
[2018-12-02] MEDS: lamoTRIgine 100mg tablet PO SCH (19:13)
[2018-12-02 20:00] VITALS: BP 127/70
[2018-12-02] MEDS: atorvastatin 10mg tablet PO SCH (20:39)
[2018-12-02] MEDS: prazosin 1mg capsule PO SCH (20:39)
[2018-12-02] MEDS ORDERED: hydrOXYzine 25 MG tablet PO PRN (21:15)
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
[2018-12-03 08:00] VITALS: BP 138/64
[2018-12-03] MEDS: pantoprazole 40mg Tablet.DR PO SCH (08:30)
[2018-12-03] MEDS: gabapentin 100mg capsule PO SCH ×2 (08:30→12:57)
[2018-12-03] MEDS: levoTHYROXINE 75mcg tablet PO SCH (08:30)
[2018-12-03] MEDS: FLUoxetine 20mg capsule PO SCH (08:30)
[2018-12-03] MEDS: LIDOcaine 5% patch TP SCH (10:49)
[2018-12-03] MEDS ORDERED: LEVO75TA7 PO (12:50)
[2018-12-03] MEDS ORDERED: PRAZ1CAP5 PO (12:50)
[2018-12-03] MEDS ORDERED: GABA100C PO (12:50)
[2018-12-03] MEDS ORDERED: ATOR10TA PO (12:50)
[2018-12-03] MEDS ORDERED: FLUO20CA22 PO (12:50)
[2018-12-03] MEDS ORDERED: HYDR-3686 PO (12:50)
[2018-12-03] MEDS ORDERED: PANT40TA4 PO (12:50)
[2018-12-03] MEDS ORDERED: LAMO100T89 PO (12:50)
--- NOTE | 2018-12-03 15:15 | NUR ---
NURSING DISCHARGE NOTE The patient was discharged at 1515 today to home. She was escorted to [facility] by KRZYSZTOF Swanson. she was discharged with all belongings and instructions. Denies suicidal thoughts, no s/s of delusional thoughts or psychosis. The patient stated she was ready to leave and looking forward to going home. Pictures of skin were obtained and put in chart. Scabies resolved.
== END 2018-12-03 15:15 | disposition home or self-care (01) | DRG 885 ==
LOC: ADULT MH 15:56
PROVIDERS: ADMIT Psychiatry & Neurology Psychiatry; ATTEND Psychiatry & Neurology Psychiatry
PROC: 3E02340 Introduction of Influenza Vaccine into Muscle, Percutaneous Approach (ICD-10-PCS; principal; 2018-11-24)
PROC: 3E0234Z Introduction of Serum, Toxoid and Vaccine into Muscle, Percutaneous Approach (ICD-10-PCS; 2018-11-27)
DX: F31.30 Bipolar disorder, current episode depressed, mild or moderate severity, unspecified (principal); R45.851 Suicidal ideations; B86 Scabies; E78.00 Pure hypercholesterolemia, unspecified; F43.10 Post-traumatic stress disorder, unspecified; E78.5 Hyperlipidemia, unspecified; E03.9 Hypothyroidism, unspecified; F41.9 Anxiety disorder, unspecified; G43.909 Migraine, unspecified, not intractable, without status migrainosus; H91.90 Unspecified hearing loss, unspecified ear; J45.909 Unspecified asthma, uncomplicated; K21.9 Gastro-esophageal reflux disease without esophagitis; L29.9 Pruritus, unspecified; F17.200 Nicotine dependence, unspecified, uncomplicated; Z90.49 Acquired absence of other specified parts of digestive tract; Z78.9 Other specified health status; Z79.890 Hormone replacement therapy; Z23 Encounter for immunization; Z79.899 Other long term (current) drug therapy; Z88.0 Allergy status to penicillin; Z88.8 Allergy status to other drugs, medicaments and biological substances; Z81.8 Family history of other mental and behavioral disorders; Z71.6 Tobacco abuse counseling
CPT/HCPCS: 36415; 71045; 80053; 80061; 80074; 81003; 84443; 85025; 85610; 85730; 86703; 87070; 90732; Q0177

== ENCOUNTER 2020-10-28 09:40 | Emergency (ER) | payer MEDICARE, MEDICAID ==
[~2020-10-28] VITALS: Ht 160 cm; Wt 50.0 kg
[~2020-10-28 09:40] MED LIST: ATOR10TA PO; FLUO-167 PO; GABA100C PO; HYDR-3686 PO; LAMO100T PO; LEVO75TA7 PO; PANT40TA54 PO; PRAZ1CAP5 PO
[2020-10-28 09:57] VITALS: BP 161/114
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
== END 2020-10-28 15:00 | disposition home or self-care (01) ==
LOC: ER 09:40
DX: S13.9XXA Sprain of joints and ligaments of unspecified parts of neck, initial encounter (principal); M50.30 Other cervical disc degeneration, unspecified cervical region; H61.23 Impacted cerumen, bilateral; Z88.0 Allergy status to penicillin; Z88.8 Allergy status to other drugs, medicaments and biological substances; Z79.899 Other long term (current) drug therapy; W19.XXXA Unspecified fall, initial encounter; Y93.89 Activity, other specified; Y92.89 Other specified places as the place of occurrence of the external cause; Y99.8 Other external cause status
CPT/HCPCS: 70450; 72125; 99285

== ENCOUNTER → 2020-12-20 | Emergency (ER) | payer MEDICARE, MEDICAID ==
[~2020-12-20] VITALS: Ht 160 cm; Wt 50.0 kg
[2020-12-20 19:45] VITALS: BP 157/90
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
--- NOTE | 2020-12-20 23:00 | NUR ---
SPOKE WITH PATIENT'S FRIEND ALYSSA ABOUT PT POSSIBLY STAYING WITH HER UNTIL PT COULD BE CONTACTED BY STENOTYPE OPERATOR AND ALYSSA STATED THAT SHE DOES NOT HAVE ANY PLACE TO PUT PT UP. ASKED ABOUT OTHER FAMILY OR FRIENDS AND ALYSSA STATED THAT PT DOES NOT HAVE ANYONE ELSE IN THE AREA.
== END | disposition home or self-care (01) ==
LOC: ER 19:37
DX: Z00.00 Encounter for general adult medical examination without abnormal findings (principal); I10 Essential (primary) hypertension; Z98.890 Other specified postprocedural states; Z88.0 Allergy status to penicillin; Z79.899 Other long term (current) drug therapy
CPT/HCPCS: 99283

== ENCOUNTER 2022-03-19 15:21 | Emergency (ER) | payer BC, MEDICAID ==
[~2022-03-19] VITALS: Ht 160 cm; Wt 47.4 kg
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
[2022-03-19] MEDS ORDERED: ONDA4TAB12 PO (19:12)
[2022-03-19] MEDS ORDERED: DOXY100C76 PO (19:12)
[2022-03-19 19:26] VITALS: BP 132/83
--- NOTE | 2022-03-19 21:02 | NUR ---
PT NOW LIVES IN [place] IN THE CORNER OF [address] [facility] PT DOES NOT HAVE HER KEYS WITH HER BUT THE LOUVER DOOR ASSEMBLER OF THE BUSINESS BELOW HER APARTMENT HAS PT'S KEYS. I CALLED PT'S HUMAN FACTORS SCIENTIST, SHERWIN ([phone]), WHO ENSURED THAT LOUVER DOOR ASSEMBLER WILL BE WAITING FOR PT TO ARRIVE HOME SO THAT SHE CAN GET BACK IN HER APARTMENT. PT LEFT ON [employer] CAB; VERIFIED WITH SALAD MAKER THAT HE WAS GIVEN PT'S UPDATED HOME ADDRESS, CALLED HUMAN FACTORS SCIENTIST BACK AND TOUCHED BASE WITH HER.
== END 2022-03-19 21:05 | disposition home or self-care (01) ==
LOC: ER 15:21
DX: J06.9 Acute upper respiratory infection, unspecified (principal); R45.851 Suicidal ideations; G89.29 Other chronic pain; R09.81 Nasal congestion; I10 Essential (primary) hypertension; M19.90 Unspecified osteoarthritis, unspecified site; Z98.890 Other specified postprocedural states; Z88.0 Allergy status to penicillin; Z88.8 Allergy status to other drugs, medicaments and biological substances; Z79.2 Long term (current) use of antibiotics; Z79.899 Other long term (current) drug therapy
CPT/HCPCS: 71045; 99283

== ENCOUNTER 2023-11-04 11:58 | Emergency (ER) | payer BC, MEDICAID ==
[~2023-11-04] VITALS: Ht 160 cm; Wt 46.8 kg
[~2023-11-04 11:58] MED LIST changes: +ALBU6.7H14 INH; -ATOR10TA PO; +ATOR10TA70 PO; +ESCI20TA PO; +FERR324T4 PO; -FLUO-167 PO; +FLUT16SP11 BOTHNARES; -GABA100C PO; -HYDR-3686 PO; -LAMO100T PO; -PANT40TA54 PO; -PRAZ1CAP5 PO
[2023-11-04 13:06] LABS: EOSINOPHILS % (AUTO) 0 % (0-6); HEMOGLOBIN 8.4 g/dl (12.0-16.0); MONOCYTES # (AUTO) 0.1 X10'3 (0-0.9); PLATELET COUNT 327 X10'3 (140-440); WHITE BLOOD COUNT 2.1 X10'3 (4.5-11.0)
[2023-11-04 13:08] LABS: BASOPHILS % (AUTO) 0.6 % (0-1); HEMATOCRIT 27.3 % (35.0-45.0); LYMPHOCYTES % (AUTO) 47.2 % (21-51); MEAN CORPUSCULAR HGB CONC 30.8 g/dL (33.0-36.5); MEAN CORPUSCULAR VOLUME 84.2 FL (78-98); MEAN PLATELET VOLUME 5.8 FL (7.4-10.4); NEUTROPHILS % (AUTO) 48.2 % (42-75); RED BLOOD COUNT 3.24 X10'6 (4.20-5.60); RED CELL DISTRIBUTION WIDTH 22.4 % (11.5-14.5)
[2023-11-04 13:32] LABS: ALANINE AMINOTRANSFERASE 31 U/L (12-78); ALBUMIN 1.9 G/DL (3.4-5.0); ALBUMIN/GLOBULIN RATIO 0.3 (1.1-1.5); ALKALINE PHOSPHATASE 96 IU/L (46-116); ANION GAP 9 (8-16); ASPARTATE AMINO TRANSFERASE 31 U/L (10-37); BILIRUBIN,TOTAL 0.4 MG/DL (0.1-1.0); BLOOD UREA NITROGEN 15 MG/DL (7-18); CALCIUM 9.2 MG/DL (8.5-10.1); CHLORIDE 104 MMOL/L (99-107); POTASSIUM 3.2 MMOL/L (3.5-5.1); SODIUM 141 MMOL/L (135-145); TOTAL PROTEIN 9.3 G/DL (6.4-8.2); eCRCL 35 ML/MIN; eGFR 54 ML/MIN
[2023-11-04 13:37] LABS: ETHANOL < 10 MG/DL (<10); GLUCOSE 128 MG/DL (70-104); THYROID STIMULATING HORMONE 11.53 ulU/ml (0.34-4.50)
[2023-11-04 14:16] LABS: NUCLEATED RED BLOOD CELLS 11 /100WBC (0-0); PLATELET ESTIMATE NORMAL; TOTAL CELLS COUNTED 100
[2023-11-04 14:17] LABS: ANISOCYTOSIS 3+
[2023-11-04 14:47] LABS: URINE AMPHETAMINE SCREEN NEGATIVE (Neg); URINE BARBITUATE SCREEN NEGATIVE (Neg); URINE BENZODIAZEPINES SCREEN NEGATIVE (Neg); URINE CANNABINOID SCREEN POSITIVE (Neg); URINE COCAINE SCREEN NEGATIVE (Neg); URINE METHADONE SCREEN NEGATIVE (Neg); URINE OPIATE SCREEN NEGATIVE (Neg); URINE PHENCYCLIDINE SCREEN NEGATIVE (Neg)
[2023-11-04 14:57] LABS: BILIRUBIN,URINE NEGATIVE (Neg); CLARITY,URINE CLEAR (Clear); COLOR,URINE YELLOW (Yellow); GLUCOSE, URINE NEGATIVE (Neg); KETONES,URINE NEGATIVE (Neg); LEUKOCYTE ESTERASE ,URINE NEGATIVE (Neg); NITRITES, URINE NEGATIVE (Neg); OCCULT BLOOD,URINE NEGATIVE (Neg); PH,URINE 5.5 (4.8-8.0); PROTEIN,URINE TRACE mg/dl (Neg); UROBILINOGEN,URINE 0.2 E.U/dL (0.2-1.0)
[2023-11-04 14:58] LABS: UA COLLECTION TYPE CLN CATCH MIDSTREAM
[2023-11-04 15:12] LABS: FINE GRANULAR CAST 0-3 /LPF (NEGATIVE)
[2023-11-04 15:15] LABS: COARSE GRANULAR CAST 0-3 /LPF (NEGATIVE)
[2023-11-04 15:16] LABS: RBC,URINE 0-2 /HPF (0-2); WBC,URINE 0-4 /HPF (0-4)
[2023-11-04 15:17] LABS: BACTERIA,URINE FEW /HPF (Neg)
[2023-11-04 15:18] LABS: MUCUS STRANDS FEW /LPF (Neg)
[2023-11-04 15:24] LABS: SQUAMOUS EPITHELIAL CELL,UR MANY /LPF (FEW)
[2023-11-04] MEDS ORDERED: potassium chloride 10mEq ER tablet PO ONE (16:45)
[2023-11-04 17:14] LABS: FREE T4 (FREE THYROXINE) 0.97 NG/DL (0.73-1.40)
[2023-11-04] MEDS ORDERED: ALBU6.7H14 INH (18:09)
[2023-11-04] MEDS ORDERED: PRED5TAB PO (18:09)
[2023-11-04] MEDS ORDERED: FERR325T28 PO (18:09)
[2023-11-04] MEDS ORDERED: albuterol 2.5 MG/3 ML nebule NEB PRN (18:35)
[2023-11-04] MEDS ORDERED: benzonatate 100mg capsule PO ONE (21:15)
[2023-11-04 23:16] VITALS: PULSE 112; RESP 20; O2SAT 91
[2023-11-04 23:22] VITALS: PULSE 96; RESP 18
[2023-11-05 06:10] VITALS: BP 116/70; TEMP 98.3
[2023-11-05 06:23] VITALS: PULSE 88; RESP 18; O2SAT 91
[2023-11-05 06:32] VITALS: PULSE 99; RESP 20
[2023-11-05] MEDS ORDERED: potassium Cl 20 mEq SR tablet PO ONE (07:10)
[2023-11-05] MEDS ORDERED: ferrous sulfate 325mg tablet PO SCH (08:00)
[2023-11-05] MEDS ORDERED: atorvastatin 10mg tablet PO SCH (08:00)
[2023-11-05] MEDS ORDERED: prednisone 10mg tablet PO SCH (08:00)
[2023-11-05] MEDS ORDERED: acetaminophen 325mg tablet PO PRN (09:15)
[2023-11-05 09:57] VITALS: RESP 16
== END 2023-11-05 15:25 ==
LOC: ER 11:59
DX: D70.9 Neutropenia, unspecified (principal); Z20.822 Contact with and (suspected) exposure to COVID-19; F03.90 Unspecified dementia, unspecified severity, without behavioral disturbance, psychotic disturbance, mood disturbance, and anxiety; I10 Essential (primary) hypertension; G89.29 Other chronic pain; M19.90 Unspecified osteoarthritis, unspecified site; Z88.0 Allergy status to penicillin; Z88.8 Allergy status to other drugs, medicaments and biological substances; Z79.899 Other long term (current) drug therapy
CPT/HCPCS: 36415; 71046; 80053; 80305; 80320; 81001; 84439; 84443; 85007; 85025; 87811; 94640; 99285; J7512; 94760; 99284